=== PATIENT | female | born 1960 | race Caucasian/White ===

== ENCOUNTER → 2017-09-16 | Outpatient (CLI) | payer BC ==
[~2017-09-16] MED LIST: ALBU18002 INH; ATOR-54 PO; FLNIN INH; FURO-85 PO; LIRA18IN IM; METF500T5 PO; SERT50TA PO; TRAZ100T29 PO; [UNRECOGNIZED DRUG - CODE] TOP; [UNRECOGNIZED DRUG - CODE] TOP
[2017-09-16 15:59] LABS: ALBUMIN 3.7 gm/dl (3.4-5.0); ALKALINE PHOSPHATASE 88 U/L (45-117); ALT/SGPT 29 U/L (12-78); AST/SGOT 15 U/L (15-37); TOTAL PROTEIN 7.3 gm/dl (6.4-8.2)
== END | disposition home or self-care (01) ==
LOC: C.LAB1850 14:32
PROVIDERS: ATTEND Physician Assistant Medical
DX: E11.9 Type 2 diabetes mellitus without complications (principal); E78.2 Mixed hyperlipidemia

== ENCOUNTER → 2017-09-16 | Outpatient (CLI) | payer BC ==
--- NOTE | 2017-09-17 14:42 | MAMMOGRAPHY REPORT ---
BILATERAL DIGITAL SCREENING MAMMOGRAM TOMOSYNTHESIS WITH CAD: 09/16/2017 CLINICAL HISTORY: Routine screening. Patient has no complaints. TECHNIQUE: Breast tomosynthesis in addition to standard 2D mammography was performed. Current study was also evaluated with a Computer Aided Detection (CAD) system. COMPARISON: Comparison is made to exam dated: 12/05/2015 mammogram - [facility]. BREAST COMPOSITION: There are scattered areas of fibroglandular density in both breasts. FINDINGS: There is stable nodularity bilaterally. No suspicious mass, architectural distortion or cl uster of microcalcifications is seen. IMPRESSION: ACR BI-RADS CATEGORY 1: NEGATIVE There is no mammographic evidence of malignancy. A 1 year screening mammogram is recommended. The pa tient will receive written notification of the results. Approximately 10% of breast cancers are not detected with mammography. A negative mammographic report should not delay biopsy if a clinically suggestive mass is present. Delmi Klein M.D. ay/:09/16/2017 18:45:16 Building Engineer: Era Whittaker, [facility] letter sent: Normal 1/2 BI-RADS Code: ACR BI-RADS Category 1: Negative
== END | disposition home or self-care (01) ==
LOC: C.MAMM 13:54
PROVIDERS: ATTEND Physician Assistant Medical
DX: Z12.31 Encounter for screening mammogram for malignant neoplasm of breast (principal)

== ENCOUNTER 2024-09-22 07:17 | Observation (INO) ==
--- NOTE | 2024-08-21 11:41 | PAT Medication Instructions ---
Medication Instructions Date of Service August 21, 2024 Home Medications albuterol sulfate 90 mcg/actuation aerosol inhaler (Ventolin HFA) 2 puff inhalation DIRECTED PRN Shortness Of Breath, Wheezing atorvastatin 40 mg tablet (Lipitor) 40 mg PO HS esomeprazole magnesium 20 mg capsule,delayed release (Nexium 24HR) 20 mg PO HS fluticasone propionate 50 mcg/actuation nasal spray,suspension (Flonase Allergy Relief) 2 spray intranasal BID furosemide 20 mg tablet (Lasix) 40 mg PO QAM levocetirizine 5 mg tablet (Xyzal) 5 mg PO BID metformin 500 mg tablet 500 mg PO HS montelukast 10 mg tablet (Singulair) 10 mg PO QAM mupirocin 2 % topical ointment (Centany) 1 applic topical DAILY PRN NASAL DRYNESS sertraline 100 mg tablet (Zoloft) 200 mg PO HS levothyroxine 50 mcg tablet (Euthyrox) 50 mcg PO QAM cholecalciferol (vitamin D3) 125 mcg (5,000 unit) capsule 5,000 unit PO QPM gabapentin 300 mg capsule (Neurontin) 300 mg PO TID ipratropium 0.5 mg-albuterol 3 mg (2.5 mg base)/3 mL nebulization soln 3 ml inhalation QID PRN Shortness Of Breath vitamin B comp and C no.3 15 mg-10 mg-50 mg-5 mg-300 mg capsule (B Complex Plus Vitamin C) 1 cap PO DAILY bupropion HCl 300 mg 24 hr tablet, extended release (Wellbutrin XL) 300 mg PO QAM buspirone 15 mg tablet 15 mg PO TID tirzepatide 15 mg/0.5 mL subcutaneous pen injector (Mounjaro) 15 mg subcut Q7D trazodone 150 mg tablet 150 mg PO HS fluticasone fur. 100 mcg-umeclid 62.5 mcg-vilant 25 mcg inhalat.powder (Trelegy Ellipta) 1 inh inhalation DAILY loratadine 5 mg-pseudoephedrine ER 120 mg tablet,extended release,12hr (Claritin-D 12 Hour) 1 tab PO BID naproxen 500 mg tablet 500 mg PO BID omega 5-wsi-duy-fish oil 1,200 mg (144 mg-216 mg) capsule (Fish Oil) 1 cap PO TID trazodone 50 mg tablet 50 mg PO HS turmeric 400 mg capsule 400 mg PO TID Continue as directed fluticasone fur. 100 mcg-umeclid 62.5 mcg-vilant 25 mcg inhalat.powder (Trelegy Ellipta) 1 inh inhalation DAILY ASK your surgeon for instructions naproxen 500 mg tablet 500 mg PO BID STOP taking 2 weeks before surgery omega 0-thr-qvr-fish oil 1,200 mg (144 mg-216 mg) capsule (Fish Oil) 1 cap PO TID turmeric 400 mg capsule 400 mg PO TID STOP taking 7 days before surgery tirzepatide 15 mg/0.5 mL subcutaneous pen injector (Mounjaro) 15 mg subcut Q7D STOP taking 24 hours before surgery mupirocin 2 % topical ointment (Centany) 1 applic topical DAILY PRN NASAL DRYNESS DO NOT take the morning of surgery furosemide 20 mg tablet (Lasix) 40 mg PO QAM levocetirizine 5 mg tablet (Xyzal) 5 mg PO BID vitamin B comp and C no.3 15 mg-10 mg-50 mg-5 mg-300 mg capsule (B Complex Plus Vitamin C) 1 cap PO DAILY loratadine 5 mg-pseudoephedrine ER 120 mg tablet,extended release,12hr (Claritin-D 12 Hour) 1 tab PO BID Take morning of surgery With a small sip of water, OTHERWISE NOTHING TO EAT OR DRINK AFTER MIDNIGHT: albuterol sulfate 90 mcg/actuation aerosol inhaler (Ventolin HFA) 2 puff inhalation DIRECTED PRN Shortness Of Breath, Wheezing (use if needed; please bring with you to hospital day of surgery if possible) fluticasone propionate 50 mcg/actuation nasal spray,suspension (Flonase Allergy Relief) 2 spray intranasal BID montelukast 10 mg tablet (Singulair) 10 mg PO QAM levothyroxine 50 mcg tablet (Euthyrox) 50 mcg PO QAM gabapentin 300 mg capsule (Neurontin) 300 mg PO TID ipratropium 0.5 mg-albuterol 3 mg (2.5 mg base)/3 mL nebulization soln 3 ml inhalation QID PRN Shortness Of Breath (if needed) bupropion HCl 300 mg 24 hr tablet, extended release (Wellbutrin XL) 300 mg PO QAM buspirone 15 mg tablet 15 mg PO TID Take evening before surgery albuterol sulfate 90 mcg/actuation aerosol inhaler (Ventolin HFA) 2 puff inhalation DIRECTED PRN Shortness Of Breath, Wheezing (if needed) atorvastatin 40 mg tablet (Lipitor) 40 mg PO HS esomeprazole magnesium 20 mg capsule,delayed release (Nexium 24HR) 20 mg PO HS fluticasone propionate 50 mcg/actuation nasal spray,suspension (Flonase Allergy Relief) 2 spray intranasal BID metformin 500 mg tablet 500 mg PO HS levocetirizine 5 mg tablet (Xyzal) 5 mg PO BID cholecalciferol (vitamin D3) 125 mcg (5,000 unit) capsule 5,000 unit PO QPM sertraline 100 mg tablet (Zoloft) 200 mg PO HS gabapentin 300 mg capsule (Neurontin) 300 mg PO TID ipratropium 0.5 mg-albuterol 3 mg (2.5 mg base)/3 mL nebulization soln 3 ml inhalation QID PRN Shortness Of Breath (if needed) buspirone 15 mg tablet 15 mg PO TID trazodone 150 mg tablet 150 mg PO HS loratadine 5 mg-pseudoephedrine ER 120 mg tablet,extended release,12hr (Claritin-D 12 Hour) 1 tab PO BID trazodone 50 mg tablet 50 mg PO HS Other Notes If you have any questions please call us at [phone] or [phone] or [phone] or [phone]
--- NOTE | 2024-09-08 15:03 | Anesthesiology Consultation ---
Date of Service September 08, 2024 Assessment & Plan (1) Encounter for pre-operative examination: Chart Review Chart Review: Acceptable Risk for Surgery (pending review of routine PCP office visit if available ) and Patient seen in Pre Admission Testing - Please obtain PCP office visit (routine visit) scheduled 09/12/24 Dr Willi Kaufman (please send preop testing for continuity of care per patient request) - Check BSG AM DOS - Last dose of Mounjaro can be taken in the AM of 09/15/24 (will be off medication x 7 days) Per PAT appt on 09/08/24, no recent illness/disease exposures, current illness related symptoms, or recent illness/disease positive tests. Will leave to surgeon's discretion if preop Covid testing needed Teaching & Discussion Pre-Anesthesia Teaching/Discussion Notes: Instructed NPO after midnight before surgery,except medications with 15 cc of water. Medication instructions provid ed according to the PAT guidelines. History Surgery Operation Date: 09/22/24 08:05 Proposed Procedures p Right Shoulder Arthroscopy, Rotator Cuff Repair, Subacromial Decompression, Biceps Tenodesis, Possible Allograft Augmentation - Omar Kelley MD Height/Weight Height: 5 ft 2 in Weight: 127.8 kg Allergies Allergy/AdvReac Type Severity Reaction Status Date / Time No Known Allergies Allergy Verified 08/18/24 13:04 Medications Home Medications Medication Instructions Recorded Confirmed Last Taken albuterol sulfate 90 mcg/actuation 2 puff inhalation DIRECTED PRN 02/24/21 08/18/24 03/27/21 aerosol inhaler (Ventolin HFA) Shortness Of Breath, Wheezing atorvastatin 40 mg tablet (Lipitor) 40 mg PO HS 02/24/21 08/18/24 06/12/24 esomeprazole magnesium 20 mg 20 mg PO HS 02/24/21 08/18/24 06/12/24 capsule,delayed release (Nexium 24HR) fluticasone propionate 50 2 spray intranasal BID 02/24/21 08/18/24 03/27/21 mcg/actuation nasal spray,suspension (Flonase Allergy Relief) furosemide 20 mg tablet (Lasix) 40 mg PO QAM 02/24/21 08/18/24 06/12/24 levocetirizine 5 mg tablet (Xyzal) 5 mg PO BID 02/24/21 08/18/24 06/12/24 metformin 500 mg tablet 500 mg PO HS 02/24/21 08/18/24 06/12/24 montelukast 10 mg tablet 10 mg PO QAM 02/24/21 08/18/24 06/12/24 (Singulair) mupirocin 2 % topical ointment 1 applic topical DAILY PRN NASAL 02/24/21 08/18/24 Unknown (Centany) DRYNESS sertraline 100 mg tablet (Zoloft) 200 mg PO HS 02/24/21 08/18/24 06/12/24 levothyroxine 50 mcg tablet 50 mcg PO QAM 03/28/21 08/18/24 06/12/24 (Euthyrox) cholecalciferol (vitamin D3) 125 5,000 unit PO QPM 08/20/23 08/18/24 Unknown mcg (5,000 unit) capsule gabapentin 300 mg capsule 300 mg PO TID 08/20/23 08/18/24 06/12/24 (Neurontin) ipratropium 0.5 mg-albuterol 3 mg 3 ml inhalation QID PRN Shortness 08/20/23 08/18/24 Unknown (2.5 mg base)/3 mL nebulization Of Breath soln vitamin B comp and C no.3 15 mg-10 1 cap PO DAILY 08/20/23 08/18/24 Unknown mg-50 mg-5 mg-300 mg capsule (B Complex Plus Vitamin C) bupropion HCl 300 mg 24 hr tablet, 300 mg PO QAM 06/07/24 08/18/24 06/12/24 extended release (Wellbutrin XL) buspirone 15 mg tablet 15 mg PO TID 06/07/24 08/18/24 06/12/24 tirzepatide 15 mg/0.5 mL 15 mg subcut Q7D 06/07/24 08/18/24 08/18/24 subcutaneous pen injector (Kirstin) trazodone 150 mg tablet 150 mg PO HS 06/07/24 08/18/24 06/12/24 fluticasone fur. 100 mcg-umeclid 1 inh inhalation DAILY 08/18/24 08/18/24 Unknown 62.5 mcg-vilant 25 mcg inhalat.powder (Trelegy Ellipta) loratadine 5 mg-pseudoephedrine ER 1 tab PO BID 08/18/24 08/18/24 Unknown 120 mg tablet,extended release,12hr (Claritin-D 12 Hour) naproxen 500 mg tablet 500 mg PO BID 08/18/24 08/18/24 Unknown omega 7-uxo-ulx-fish oil 1,200 mg 1 cap PO TID 08/18/24 08/18/24 Unknown (144 mg-216 mg) capsule (Fish Oil) trazodone 50 mg tablet 50 mg PO HS 08/18/24 08/18/24 Unknown turmeric 400 mg capsule 400 mg PO TID 08/18/24 08/18/24 Unknown Past Medical History Medical History (Updated 09/08/24 @ 14:59 by Oneyda Montoya PA-C) Anxiety Asthma developed after 2021 covid infection (long Covid) inh and neb prn>2x yearly Biceps rupture, proximal Right - pt unsure of dx but thinks it is bicep - reason for procedure Diabetes NIDDM GERD (gastroesophageal reflux disease) well controlled and stabl History of COVID-19 07/2021, still has brain fog and developed asthma; f/u [facility] post-covid clinic History of pulmonary embolism 2021 secondary to Covid infection- on blood thinners x several months- no issues since Hyperlipidemia Hypothyroidism Kidney stone has had sx in the past, has some currently and no issues OCD (obsessive compulsive disorder) ROSEANNA (obstructive sleep apnea) CPAP Exercise / Class Metabolic Activity III < 4 Walking/Shop/Light housework (one flight of stairs - no chest pain, mild SOB; does swimming daily (difficulty recently due to arm pain) ) Past Surgical History Surgical History History of delivery x3, tubal ligation w/3rd History of ear surgery inner ear surgery, bilateral, 2022 S/P cystoscopy with ureteral stent placement w/laser destruction stone Status post myringotomy with tube placement of both ears Past Anesthesia History No Hx of Anesthesia Complications and No Family Hx of Anesthesia Complications History of PONV No Hx of PONV and No Hx of Motion Sickness Social History Smoking Status: Never smoker Do You Dip or Chew Tobacco: No Hx Alcohol Use: No Hx Substance Use: No substance use type: does not use Review of Systems - Wheezing - chronic with asthma - Mild residual cough from URI the end Jul 2024 Patient denies chest pain, shortness of breath at rest, dyspnea on exertion, palpitations. No hx of seizures, stroke, VA. No hx of blood clots or blood transfusions Physical Exam Vital Signs VITALS BP 120/75 P 67 TEMP 97.4 SP02 94% RESP 16 Constitutional no acute distress ENMT Mouth: no TMJ clicking Thyromental Distance: > or= 3.5 Finger Breadths (3.5) Mallampati Class: I Neck + short neck (mild), + thick neck (mild) and + limited neck extension (mild) Respiratory normal respiratory effort; no respiratory distress Auscultation: lungs clear to auscultation bilaterally; no wheezes Cardiovascular Rate/Rhythm: regular rate and regular rhythm Heart Sounds: no murmur Vessels: no carotid bruit Musculoskeletal Spine: no pain with cervical ROM Extremities: extremities normal to inspection Psychiatric Orientation: alert Lab Results Anesthesia Preop Results Results Anesthesia Widget: WBC 6.92 K/ul (4.8-10.8) 09/08/24 Hgb 14.0 g/dl (12.0-16.0) 09/08/24 Hct 43.0 % (37.0-47.0) 09/08/24 Plt 283 K/uL (130-400) 09/08/24 Na 139 mmol/L (136-145) 09/08/24 K 4.4 mmol/L (3.5-5.1) 09/08/24 Cl 101 mmol/L (98-107) 09/08/24 CO2 31 mmol/L (21-32) 09/08/24 BUN 23 mg/dl (6-23) 09/08/24 Creat 1.12 mg/dl (0.6-1.2) 09/08/24 Glucose Level 127 mg/dl (70-99(Fasting)) H 09/08/24 PT 10.4 Seconds (9.0-12.0) 09/08/24 PTT 25 Seconds (21-31) 09/08/24 INR 1.0 (0.9-1.1) 09/08/24 HA1c 6.2 % (4.5-5.6) H 09/08/24 Testing Electrocardiogram Date: 09/08/24 Findings: + NSR @ (68bpm) Normal EKG per cardio Chest X-Ray Date: 09/08/24 Findings: + NAD
[~2024-09-22 07:17] MED LIST changes: -ALBU18002 INH; -ATOR-54 PO; +BUPIVACAINE 0.5 % 5 MG/1 ML PF 10ML VIAL ONE; -FLNIN INH; -FURO-85 PO; -LIRA18IN IM; -METF500T5 PO; -SERT50TA PO; -TRAZ100T29 PO; -[UNRECOGNIZED DRUG - CODE] TOP; -[UNRECOGNIZED DRUG - CODE] TOP
--- NOTE | 2024-09-22 08:15 | History & Physical Report ---
Date of Service September 22, 2024 Assessment & Plan (1) Tendinopathy of rotator cuff: (2) Biceps rupture, proximal: (3) Traumatic tear of right rotator cuff: Plan The informed consent and plan of the day were all reviewed. Expectations for postop period were reviewed. She wants to proceed. The informed consent was reviewed and confirmed to proceed with RIGHT SHOULDER ARTHROSCOPY, ROTATOR CUFF REPAIR, SUBACROMIAL DECOMPRESSION, BICEPS TENODESIS, POSSIBLE ALLOGRAFT AUGMENTATION History of Present Illness Chief Complaint: Right shoulder injury Primary Care Provider: Willi Kaufman 63-year-old female presents today to proceed with the surgical plan to treat her shoulder pain and rotator cuff dysfunction that developed as a result of an acute injury in April 2024. She reports no changes to her health history. She has been evaluated by anesthesia and wants to proceed today. Allergies Allergy/AdvReac Type Severity Reaction Status Date / Time No Known Allergies Allergy Verified 08/18/24 13:04 Home Medications Medication Instructions Recorded Confirmed Type albuterol sulfate 90 mcg/actuation 2 puff inhalation DIRECTED PRN 02/24/21 08/18/24 History aerosol inhaler (Ventolin HFA) Shortness Of Breath, Wheezing atorvastatin 40 mg tablet (Lipitor) 40 mg PO HS 02/24/21 08/18/24 History esomeprazole magnesium 20 mg 20 mg PO HS 02/24/21 08/18/24 History capsule,delayed release (Nexium 24HR) fluticasone propionate 50 2 spray intranasal BID 02/24/21 08/18/24 History mcg/actuation nasal spray,suspension (Flonase Allergy Relief) furosemide 20 mg tablet (Lasix) 40 mg PO QAM 02/24/21 08/18/24 History levocetirizine 5 mg tablet (Xyzal) 5 mg PO BID 02/24/21 08/18/24 History metformin 500 mg tablet 500 mg PO HS 02/24/21 08/18/24 History montelukast 10 mg tablet 10 mg PO QAM 02/24/21 08/18/24 History (Singulair) mupirocin 2 % topical ointment 1 applic topical DAILY PRN NASAL 02/24/21 08/18/24 History (Centany) DRYNESS sertraline 100 mg tablet (Zoloft) 200 mg PO HS 02/24/21 08/18/24 History levothyroxine 50 mcg tablet 50 mcg PO QAM 03/28/21 08/18/24 History (Euthyrox) cholecalciferol (vitamin D3) 125 5,000 unit PO QPM 08/20/23 08/18/24 History mcg (5,000 unit) capsule gabapentin 300 mg capsule 300 mg PO TID 08/20/23 08/18/24 History (Neurontin) ipratropium 0.5 mg-albuterol 3 mg 3 ml inhalation QID PRN Shortness 08/20/23 08/18/24 History (2.5 mg base)/3 mL nebulization Of Breath soln vitamin B comp and C no.3 15 mg-10 1 cap PO DAILY 08/20/23 08/18/24 History mg-50 mg-5 mg-300 mg capsule (B Complex Plus Vitamin C) bupropion HCl 300 mg 24 hr tablet, 300 mg PO QAM 06/07/24 08/18/24 History extended release (Wellbutrin XL) buspirone 15 mg tablet 15 mg PO TID 06/07/24 08/18/24 History tirzepatide 15 mg/0.5 mL 15 mg subcut Q7D 06/07/24 08/18/24 History subcutaneous pen injector (Mounjaro) trazodone 150 mg tablet 150 mg PO HS 06/07/24 08/18/24 History fluticasone fur. 100 mcg-umeclid 1 inh inhalation DAILY 08/18/24 08/18/24 History 62.5 mcg-vilant 25 mcg inhalat.powder (Trelegy Ellipta) loratadine 5 mg-pseudoephedrine ER 1 tab PO BID 08/18/24 08/18/24 History 120 mg tablet,extended release,12hr (Claritin-D 12 Hour) naproxen 500 mg tablet 500 mg PO BID 08/18/24 08/18/24 History omega 1-wif-vbv-fish oil 1,200 mg 1 cap PO TID 08/18/24 08/18/24 History (144 mg-216 mg) capsule (Fish Oil) trazodone 50 mg tablet 50 mg PO HS 08/18/24 08/18/24 History turmeric 400 mg capsule 400 mg PO TID 08/18/24 08/18/24 History Past Med/Surg History Problem List (Updated 09/22/24 @ 08:15 by Omar Kelley MD) Traumatic tear of right rotator cuff Encounter for pre-operative examination Tendinopathy of rotator cuff Biceps rupture, proximal Vaginal polyp Weakness (Acute) Medical History History of pulmonary embolism 2021 secondary to Covid infection- on blood thinners x several months- no issues since ROSEANNA (obstructive sleep apnea) CPAP Biceps rupture, proximal Right - pt unsure of dx but thinks it is bicep - reason for procedure Hypothyroidism OCD (obsessive compulsive disorder) Anxiety GERD (gastroesophageal reflux disease) well controlled and stabl Hyperlipidemia History of COVID-19 07/2021, still has brain fog and developed asthma; f/u [facility] post-covid clinic Kidney stone has had sx in the past, has some currently and no issues Diabetes NIDDM Asthma developed after 2021 covid infection (long Covid) inh and neb prn>2x yearly Surgical History S/P cystoscopy with ureteral stent placement w/laser destruction stone History of ear surgery inner ear surgery, bilateral, 2022 Status post myringotomy with tube placement of both ears History of delivery x3, tubal ligation w/3rd Social History Smoking Status: Never smoker Second Hand Exposure: No; Do You Dip or Chew Tobacco: No; Tobacco Cessation Education Requested by Patient: No Hx Alcohol Use: No Hx Substance Use: No Preferred Language: Polish Communication Ability: Effective Camp Assistant Required: No Beliefs That Will Affect Care: None Current Living Situation: Spouse Other Information That Helps Us Care for You: No Feels Safe at Home: Yes Safety Concerns: Feels Safe At This Time Assistive Devices: Glasses Review of Systems All systems reviewed & are unremarkable except as noted in HPI & below. Physical Exam Right shoulder: No overlying skin changes. No changes in exam Constitutional WD/WN, vitals as above no acute distress and not intoxicated appearing Respiratory normal respiratory effort; no labored breathing Cardiovascular Extremities: normal capillary refill Results & Data Results & Data Laboratory Results . Diagnostic Findings . PG Care Time/CCT Total # of Minutes Spent Total Time Spent with Patient: Total time spent is greater than 50% in coordination of care (as documented) at patient's floor/unit and/or counseling patient: Coding Level of Care Code None Diagnoses Tendinopathy of right rotator cuff M67.911 Laterality: right Rupture of right proximal biceps tendon, subsequent encounter S46.211D Encounter type: subsequent encounter Laterality: right Traumatic tear of right rotator cuff S46.011A (1) Tendinopathy of rotator cuff Laterality: right Qualified Code(s): M67.911 - Unspecified disorder of synovium and tendon, right shoulder (2) Biceps rupture, proximal Encounter type: subsequent encounter Laterality: right Qualified Code(s): S46.211D - Strain of muscle, fascia and tendon of other parts of biceps, right arm, subsequent encounter
[2024-09-22] MEDS ORDERED: MIDAZOLAM HCL 1 MG/ML 2ML VIAL ONE (08:17)
[2024-09-22] MEDS: LR 15ML/HR IV SCH (08:30)
[2024-09-22] MEDS: ACETAMINOPHEN 500 MG TAB PO SCH (08:31)
[2024-09-22] MEDS: LR 60ML/HR IV SCH (08:31)
[2024-09-22] MEDS ORDERED: DEXAMETHASONE SOD INJ 4 MG/ML VIAL ONE (08:54)
[2024-09-22] MEDS ORDERED: ROCURONIUM BROMIDE 10 MG/ML 5 ML VIAL IV ONE ×2 (08:54→11:36)
[2024-09-22] MEDS ORDERED: LIDOCAINE 2% 2 ML VIAL/AMP(20MG/ML) INFIL ONE (08:54)
[2024-09-22] MEDS ORDERED: PROPOFOL IV EMULSION 10 MG/ML 20 ML VIAL IV ONE (08:54)
[2024-09-22] MEDS ORDERED: ONDANSETRON INJ 2 MG/ML 2 ML VIAL ONE (08:54)
[2024-09-22] MEDS ORDERED: fentaNYL citrate PF 100 MCG/2 ML VIAL ONE (08:54)
[2024-09-22] MEDS ORDERED: PROMETHAZINE HCL 6.25 MG in SODIUM CHLORIDE 0.9% 50 ML IV PRN (09:11)
[2024-09-22] MEDS ORDERED: fentaNYL citrate PF 100 MCG/2 ML VIAL IV PRN (09:11)
[2024-09-22] MEDS ORDERED: ATROPINE SULFATE 0.1 MG/ML 10ML SYR IV PRN (09:11)
[2024-09-22] MEDS ORDERED: ePHEDrine sulfate 50 MG/ML AMP IV PRN (09:11)
[2024-09-22] MEDS ORDERED: ROPIVACAINE 0.5% 5 MG/ML 30 ML VIAL ONE (09:22)
[2024-09-22] MEDS: TRANEXAMIC ACID 1,000 MG **IV Pre-op IV SCH (09:29)
[2024-09-22] MEDS: ceFAZolin 3000MG 3,000 MG/72.5 ML BAG IV SCH (10:32)
[2024-09-22] MEDS ORDERED: ePHEDrine sulfate 50 MG/ML AMP ONE (10:59)
[2024-09-22] MEDS ORDERED: PHENYLEPHRINE 100MCG/ML 5ML SYR ONE (11:36)
[2024-09-22] MEDS ORDERED: SUGAMMADEX SODIUM 200 MG/2 ML VIAL IV ONE (13:14)
--- NOTE | 2024-09-22 14:02 | Post Operative Brief Note ---
PG Immediate Post Op with CF Date of Surgery September 22, 2024 Pre & Post Diagnosis Operation Date: 09/22/24 09:50 Pre-Op Diagnosis: (1) Tendinopathy of rotator cuff: (2) Biceps rupture, proximal: (3) Traumatic tear of right rotator cuff: Post-Op Diagnosis: (1) Tendinopathy of rotator cuff: (2) Biceps rupture, proximal: (3) Traumatic tear of right rotator cuff: I identified the patient and participated in the time-out.: Yes Procedure Operation Date: 09/22/24 09:50 Actual Procedures p Right Shoulder Arthroscopy, Rotator Cuff Repair, Subacromial Decompression, Biceps Tenodesis, Allograft Augmentation(Right) - Omar Kelley MD Surgeon Omar Kelley MD Senior Investment Analyst EULALIO Christianson Estimated Blood Loss 25 Findings Consistent with Post-Op Diagnosis
--- NOTE | 2024-09-22 16:50 | History & Physical Report ---
Date of Service September 22, 2024 Assessment & Plan (1) Hypoxia: (2) ROSEANNA (obstructive sleep apnea): (3) History of COVID-19: (4) Diabetes: Plan #hypoxia -strongly suspect post op sedation, possibly some effects from nerve block (ie lack of deep breathing +/- atelectasis)- but superimposed on ROSEANNA/probable OHS (related to morbid obesity/BMI 51.6) -CPAP -supportive care, supplemental O2, time -serial exams but doubt other pathology at play -incentive spirometry -home once improved; w/u further if doesn't improve or anything changes/worsens #DM -home meds -more intensive management/etc if hospital stay prolonged #DVT proph - SCDs for now; add pharmacologic if stay is prolonged comes from home, lives with , notes they're both on disability - anticipate being able to go home at discharge History of Present Illness Chief Complaint: hypoxia Primary Care Provider: Willi peace 63F post op shoulder surgery. we were asked to see due to persistent hypoxia. no sx. no sob. no f/c/s. no cp no cough. she relates it to her long covid and is not surprised. mostly wants to make sure we have CPAP or that she can use hers from home. Allergies Allergy/AdvReac Type Severity Reaction Status Date / Time No Known Allergies Allergy Verified 09/22/24 08:18 Home Medications Medication Instructions Recorded Confirmed Type albuterol sulfate 90 mcg/actuation 2 puff inhalation DIRECTED PRN 02/24/21 09/22/24 History aerosol inhaler (Ventolin HFA) Shortness Of Breath, Wheezing atorvastatin 40 mg tablet (Lipitor) 40 mg PO HS 02/24/21 09/22/24 History esomeprazole magnesium 20 mg 20 mg PO HS 02/24/21 09/22/24 History capsule,delayed release (Nexium 24HR) fluticasone propionate 50 2 spray intranasal BID 02/24/21 09/22/24 History mcg/actuation nasal spray,suspension (Flonase Allergy Relief) furosemide 20 mg tablet (Lasix) 40 mg PO QAM 02/24/21 09/22/24 History levocetirizine 5 mg tablet (Xyzal) 5 mg PO BID 02/24/21 09/22/24 History montelukast 10 mg tablet 10 mg PO QAM 02/24/21 09/22/24 History (Singulair) mupirocin 2 % topical ointment 1 applic topical DAILY PRN NASAL 02/24/21 09/22/24 History (Centany) DRYNESS sertraline 100 mg tablet (Zoloft) 200 mg PO HS 02/24/21 09/22/24 History levothyroxine 50 mcg tablet 50 mcg PO QAM 03/28/21 09/22/24 History (Euthyrox) cholecalciferol (vitamin D3) 125 5,000 unit PO QPM 08/20/23 09/22/24 History mcg (5,000 unit) capsule gabapentin 300 mg capsule 300 mg PO TID 08/20/23 09/22/24 History (Neurontin) ipratropium 0.5 mg-albuterol 3 mg 3 ml inhalation QID PRN Shortness 08/20/23 09/22/24 History (2.5 mg base)/3 mL nebulization Of Breath soln vitamin B comp and C no.3 15 mg-10 1 cap PO DAILY 08/20/23 09/22/24 History mg-50 mg-5 mg-300 mg capsule (B Complex Plus Vitamin C) bupropion HCl 300 mg 24 hr tablet, 300 mg PO QAM 06/07/24 09/22/24 History extended release (Wellbutrin XL) buspirone 15 mg tablet 15 mg PO TID 06/07/24 09/22/24 History tirzepatide 15 mg/0.5 mL 15 mg subcut Q7D 06/07/24 08/18/24 History subcutaneous pen injector (Mounjaro) trazodone 150 mg tablet 150 mg PO HS 06/07/24 09/22/24 History fluticasone fur. 100 mcg-umeclid 1 inh inhalation DAILY 08/18/24 09/22/24 History 62.5 mcg-vilant 25 mcg inhalat.powder (Trelegy Ellipta) loratadine 5 mg-pseudoephedrine ER 1 tab PO BID 08/18/24 09/22/24 History 120 mg tablet,extended release,12hr (Claritin-D 12 Hour) naproxen 500 mg tablet 500 mg PO BID 08/18/24 09/22/24 History omega 7-ulv-rde-fish oil 1,200 mg 1 cap PO TID 08/18/24 09/22/24 History (144 mg-216 mg) capsule (Fish Oil) trazodone 50 mg tablet 50 mg PO HS 08/18/24 09/22/24 History turmeric 400 mg capsule 400 mg PO TID 08/18/24 09/22/24 History empagliflozin 5 mg-metformin 500 1 tab PO BID 09/22/24 09/22/24 History mg tablet (Synjardy) ondansetron HCl 4 mg tablet 4 mg PO Q8H PRN nausea and 09/22/24 Rx vomiting #10 tabs oxycodone 5 mg tablet 5 mg PO Q4H PRN pain #18 tabs 09/22/24 Rx Past Med/Surg History Problem List (Updated 09/22/24 @ 16:47 by Charli Dwyer DO) Hypoxia S/P rotator cuff repair Traumatic tear of right rotator cuff Encounter for pre-operative examination Tendinopathy of rotator cuff Biceps rupture, proximal Vaginal polyp Weakness (Acute) Medical History History of pulmonary embolism 2021 secondary to Covid infection- on blood thinners x several months- no issues since ROSEANNA (obstructive sleep apnea) CPAP Biceps rupture, proximal Right - pt unsure of dx but thinks it is bicep - reason for procedure Hypothyroidism OCD (obsessive compulsive disorder) Anxiety GERD (gastroesophageal reflux disease) well controlled and stabl Hyperlipidemia History of COVID-19 07/2021, still has brain fog and developed asthma; f/u [facility] post-covid clinic Kidney stone has had sx in the past, has some currently and no issues Diabetes NIDDM Asthma developed after 2021 covid infection (long Covid) inh and neb prn>2x yearly Surgical History S/P cystoscopy with ureteral stent placement w/laser destruction stone History of ear surgery inner ear surgery, bilateral, 2022 Status post myringotomy with tube placement of both ears History of delivery x3, tubal ligation w/3rd Social History Smoking Status: Never smoker Second Hand Exposure: No; Do You Dip or Chew Tobacco: No; Tobacco Cessation Education Requested by Patient: No Hx Alcohol Use: No Hx Substance Use: No Preferred Language: Mexican Communication Ability: Effective Exercise Equipment Specialist Required: No Beliefs That Will Affect Care: None Current Living Situation: Spouse Other Information That Helps Us Care for You: No Feels Safe at Home: Yes Safety Concerns: Feels Safe At This Time Assistive Devices: Glasses Review of Systems Review of Systems: All systems reviewed & are unremarkable except as noted in HPI & below Physical Exam Physical Exam: gen aaox3 pleasant nad heent nc at mmm cardio distant but reg no r/m/g. breathing unlabored no accessory muscles lungs quiet but clear - diminished air entry but no r/r/w good effort skin no rashes no pallor or icterus neuro no focal deficits Results & Data Results & Data Vital Signs (Past 12 Hours) Vital Signs Temp Pulse Pulse Resp BP Pulse Ox O2 Del Method 09/22/24 16:25 97.7 F 65 21 99/62 L 93 Nasal Cannula 09/22/24 16:15 67 22 111/83 95 Nasal Cannula 09/22/24 16:05 64 20 107/61 95 Nasal Cannula 09/22/24 15:55 67 14 120/73 94 Nasal Cannula 09/22/24 15:45 71 21 126/65 93 Nasal Cannula 09/22/24 15:35 75 22 95/53 L 92 Nasal Cannula 09/22/24 15:25 64 21 103/54 L 92 Nasal Cannula 09/22/24 15:15 66 22 104/57 L 93 Nasal Cannula 09/22/24 15:05 63 20 105/44 L 96 Nasal Cannula 09/22/24 14:55 66 21 108/46 L 96 Nasal Cannula 09/22/24 14:45 97.2 F L 64 22 99/48 L 96 Nasal Cannula 09/22/24 14:35 61 19 105/53 L 100 CPAP 09/22/24 14:25 65 16 103/54 L 98 CPAP 09/22/24 14:15 64 18 118/65 98 CPAP 09/22/24 14:05 96.8 F L 63 19 116/58 L 96 CPAP 09/22/24 08:46 Room Air 09/22/24 08:05 98.2 F 63 22 135/79 94 Room Air O2 Flow Rate FiO2 09/22/24 16:25 3 09/22/24 16:15 3 09/22/24 16:05 3 09/22/24 15:55 3 09/22/24 15:45 3 09/22/24 15:35 3 09/22/24 15:25 2 09/22/24 15:15 2 09/22/24 15:05 2 09/22/24 14:55 2 09/22/24 14:45 4 09/22/24 14:35 40 09/22/24 14:25 40 09/22/24 14:15 40 09/22/24 14:05 40 09/22/24 08:46 09/22/24 08:05 Code Status & VTE Plan VTE Prophylaxis Plan VTE Prophylaxis will be ordered: Yes PG Care Time/CCT Total # of Minutes Spent Total Time Spent with Patient: Total time spent is greater than 50% in coordination of care (as documented) at patient's floor/unit and/or counseling patient: Coding Level of Care Code 71789 INT INP/OBS CARE 3/75MIN Diagnoses Hypoxia R09.02 ROSEANNA (obstructive sleep apnea) G47.33 History of COVID-19 Z86.16 Diabetes E11.9
--- NOTE | 2024-09-22 17:28 | Anesthesiology Progress Note ---
Date of Service September 22, 2024 Anesthesia Post Procedure Vital Signs Vital Signs: Temp Pulse Pulse Resp BP Pulse Ox O2 Del Method 09/22/24 17:15 74 17 116/65 92 Nasal Cannula 09/22/24 17:00 67 20 112/52 L 93 Nasal Cannula 09/22/24 16:45 65 18 97/62 L 94 Nasal Cannula 09/22/24 16:30 65 18 100/62 94 Nasal Cannula 09/22/24 16:25 36.5 C 65 21 99/62 L 93 Nasal Cannula 09/22/24 16:15 67 22 111/83 95 Nasal Cannula 09/22/24 16:05 64 20 107/61 95 Nasal Cannula 09/22/24 15:55 67 14 120/73 94 Nasal Cannula 09/22/24 15:45 71 21 126/65 93 Nasal Cannula 09/22/24 15:35 75 22 95/53 L 92 Nasal Cannula 09/22/24 15:25 64 21 103/54 L 92 Nasal Cannula 09/22/24 15:15 66 22 104/57 L 93 Nasal Cannula 09/22/24 15:05 63 20 105/44 L 96 Nasal Cannula 09/22/24 14:55 66 21 108/46 L 96 Nasal Cannula 09/22/24 14:45 36.2 C L 64 22 99/48 L 96 Nasal Cannula 09/22/24 14:35 61 19 105/53 L 100 CPAP 09/22/24 14:25 65 16 103/54 L 98 CPAP 09/22/24 14:15 64 18 118/65 98 CPAP 09/22/24 14:05 36 C L 63 19 116/58 L 96 CPAP 09/22/24 08:46 Room Air 09/22/24 08:05 36.8 C 63 22 135/79 94 Room Air O2 Flow Rate FiO2 09/22/24 17:15 3 09/22/24 17:00 3 09/22/24 16:45 3 09/22/24 16:30 3 09/22/24 16:25 3 09/22/24 16:15 3 09/22/24 16:05 3 09/22/24 15:55 3 09/22/24 15:45 3 09/22/24 15:35 3 09/22/24 15:25 2 09/22/24 15:15 2 09/22/24 15:05 2 09/22/24 14:55 2 09/22/24 14:45 4 09/22/24 14:35 40 09/22/24 14:25 40 09/22/24 14:15 40 09/22/24 14:05 40 09/22/24 08:46 09/22/24 08:05 Transfer of Care Handoff Completed per policy Notes Mental Status: alert / awake / arousable Patient Amnestic to Procedure: Yes Nausea / Vomiting: adequately controlled Pain: adequately controlled Airway Patency, RR, SpO2: stable & adequate BP & HR: stable & adequate Hydration State: stable & adequate Anesthetic Complications: no major complications apparent
[2024-09-22] MEDS ORDERED: ALUMINUM/MAGNESIUM SUSP 30 ML UDC PO PRN (17:42)
[2024-09-22] MEDS ORDERED: MAGNESIUM HYDROXIDE SUSP 30 ML UDC PO PRN (17:42)
[2024-09-22] MEDS ORDERED: POLYETHYLENE (MIRALAX) 17 GM PACK PO PRN (17:42)
[2024-09-22] MEDS ORDERED: MUPIROCIN 2% OINT 22 GM TUBE TOP PRN (17:42)
[2024-09-22] MEDS ORDERED: ALBUTEROL HFA 8 GM INHALER INH PRN (17:42)
[2024-09-22] MEDS ORDERED: ONDANSETRON INJ 2 MG/ML 2 ML VIAL IV PRN (17:42)
[2024-09-22] MEDS ORDERED: ALBUT/IPRATROP 3MG/0.5MG NEB 3 ML VIAL INH PRN (17:42)
--- NOTE | 2024-09-22 19:13 | Operative Report ---
PG Post Operative Report Pre & Post Diagnosis Operation Date: 09/22/24 09:50 Pre-Op Diagnosis: (1) Tendinopathy of rotator cuff: (2) Biceps partial rupture, proximal: (3) Traumatic tear of right rotator cuff: (4) partial tear of the subscapularis Post-Op Diagnosis: (1) Tendinopathy of rotator cuff: (2) Biceps partial rupture, proximal: (3) Traumatic tear of right supraspinatus and infraspinatus rotator cuff: (4) partial tear of the subscapularis I identified the patient and participated in the time-out.: Yes Procedure Operation Date: 09/22/24 09:50 Actual Procedures p Right Shoulder Arthroscopy, subscapularis repair with arthroscopic biceps tenodesis, allograft augmented supraspinatus and infraspinatus rotator Cuff Repair, Subacromial Decompression (Right) - Omar Kelley MD Surgeon Omar Kelley MD Mortgage Clerk Jefe Christianson PA-C Estimated Blood Loss 25 Findings Consistent with Post-Op Diagnosis EUA demonstrated full passive range of motion without crepitus. Arthroscopy revealed massive rotator cuff tear. There was a partial tear of the subscapularis with biceps partial tearing and impingement onto the subscapularis. There is a full-thickness tear with retraction of the i nfraspinatus and supraspinatus there was an L-shaped pattern. Extensive tendinopathy with both acute and chronic tearing findings. Preserved cartilage. The subscapularis partial tear was fixed using a speed fix construct that incorporated a biceps loop and tack tenodesis into a 4.75 bio composite swivel lock. The superior rotator cuff tissue was repaired after debridement to approximately 50% the width of the rotator cuff footprint using a 5 anchor, double row construct, incorporating Arthrex Arthroflex dermal allograft for the soft tissue deficit and reinforcement of the tendinopathy. The posterolateral corner of the retracted cuff was fixed using an independent Arthrex 2.6 mm knotless fiber tack that reached about 50% of the footprint of the greater tuberosity. The medial row was Arthrex 2.6 mm knotless RC fiber tacks that were passed through the residual cuff tissue, with the medial row knotless mechanism used to pulling the Arthroflex dermal allograft (402: 1 mm x 20 x 25 mm), with a dermal allograft lateral corners fixed using bio composite 3.5 mm push locks, with fiber tape from the medial row brought to a lateral crossing suture bridge construct into a two 5.5 mm bio composite swivel locks. Specimens None Anesthesia Type General Regional Complications none Disposition Accompanied Patient To Recovery: No Disposition: Recovery Room Indications 63-year-old [female] presented with shoulder pain and rotator cuff dysfunction following an acute injury in April 2024. Physical exam and advanced imaging supported the diagnosis of acute on chronic massive rotator cuff tear, and arthroscopic intervention to restore shoulder function was offered. We discussed the risks and benefits, as outlined in the preoperative note. Informed consent was obtained in the clinic. Description of Procedure On the day of surgery, the patient was greeted in the preoperative holding area. The informed consent was reviewed and confirmed by myself and the patient. The patient identified the surgical site, and it was marked by me. The patient was then turned over to anesthesia. Anesthesia performed a liposomal ropivacaine regional anesthetic block with excellent effect. Patient was then taken to the operating room and placed upon the OR table. Anesthesia was induced. The airway was secured. The patient was positioned in the beachchair with all bony prominences well- padded. The operative extremity was then prepped and draped in usual sterile fashion for beachchair arthroscopy with Arthrex Trimano arm positioner. Surgical timeout was called by the circulating nurse and verified all present. Antibiotics had been infused, and equipment was available and functional. We initiated the procedure by creating a standard posterior viewing portal for beachchair arthroscopy. Cursory diagnostic arthroscopy was carried out and an anterior portal was established using a spinal needle for localization. A motorized shaver was then introduced to address synovitis and improve visualization. Thorough diagnostic arthroscopy was carried out. The superior labrum had degenerative fraying. The inferior, posterior and anterior labrum also had abundant synovitis which was extensively debrided. The articular cartilage was intact with a grade 1 diffuse softening throughout. There were impingement lesions at the entrance to the biceps groove bicep tendon appeared significantly frayed. The superior border of the subscapularis was frayed. The intra-articular exam demonstrated an obvious full-thickness tear of the superior cuff tissue with exposure of the rotator cuff footprint. Given the full-thickness superior rotator cuff tear, I established a lateral portal using a spinal needle for localization. A Bessy cannula was placed here for additional access while repairing the subscapularis and perform the biceps tenodesis. Given the condition of the biceps tendon in the superior labrum, biceps tenodesis was planned to be performed arthroscopically. This was performed using the loop and tack method. A link stitch was passed thru the bicep tendon and brought back down to capture with loop. A tissue penetrator device was then used to pass the suture tail back through the substance of the tendon to form secure grasping suture. An Arthrex silicone passport cannula was placed into the anterior portal. The subscapularis tendon was mobilized by removing peritendinous adhesions using the motorized shaver and electrocautery wand. The middle glenohumeral ligament was released partially to allow good excursion of the tendon. The anterior aspect of the subscapularis recess was debrided of soft tissue to allow suture passage of the scorpion. The subscapularis tear involve the superior border and was amenable to a simple speed fix or inverted horizontal mattress stitch. The superior aspect of the lesser tuberosity footprint was prepared using a curette and motorized shaver to create a bleeding bony bed. The scorpion was loaded with fiber tape suture which was then passed through the subscapularis tendon in an inverted horizontal mattress fashion. The tails were pulled out the anterior superior access portal. The tails of the speed fix were then captured on a 4.75 bio composite swivel lock anchor and the loop intact biceps tenodesis suture was included with this construct. The 4.75 punch was then used to create a pilot plant operator hole and then the swivel lock was deployed to complete the speed fix with biceps tenodesis. We then exited the intra-articular space and entered the subacromial space using a trocar. Motorized shaver was introduced and that subacromial bursectomy was carried out to improve visualization. A spur was appreciated on the anterior lateral edge of the acromion. A formal subacromial decompression with acromioplasty was performed using motorized helen to reshape the underside of the acromion to a flat stable margin all the way to the AC joint. Thorough irrigation was then performed. Once we have adequate visualization of the rotator cuff we evaluated the bursal aspect. We then changed to the lateral viewing portal. Switching stick was used to assist with this. Spinal needle was then used to create an accessory lateral viewing portal. We then cannulated the second lateral portal with an Arthrex Bessy cannula. Debridement of the rotator cuff insertion was carried out. The posterior interval slide release was performed to gain excursion of the tendon. There was significant occasions of the retracted tendon on the capsular bursal side there is require debridement. The skeletonized the acromion acromial spine and released all the posterior and anterior gutters. We debrided back generative rotator cuff tissue back to stable tissue margins. The greater tuberosity footprint was then debrided of soft tissue. A arthroscopic helen, motorized shaver, and curette was used to expose bleeding bone. We then percutaneously inserted self punching 2.6 mm FiberTack RC anchor with knotless mechanism and suture tape into the ivanna-medial row position on the articular cartilage margin which was visible. Spinal needle was used to locate and then deploy a percutaneously inserted second and third 2.6 mm fiber tack RC anchor to the middle and posterior position. All suture tails were brought back out of the percutaneous insertion points for suture management. An Arthrex scorpion was then used to pass a fiber link suture through the posterior and anterior cuff tissue. The fiber link was used to pass the swedged fiber tapes from the anchor as well as knotless mechanism stitches. The posterior anchor was passed through the residual teres and posterior corner of the infraspinatus. The anterior and middle positions were passed through a delaminated portion on the articular side and including the bursal portion. The tissue excursion would not allow full footprint coverage. For that reason an independent 2's 0.6 mm knotless fiber tack was used at the posterior aspect of the middle of the tuberosity footprint. This was passed in an inverted mattress fashion to bring that posterior cord of the L pattern back to the residual posterior cuff tissue. This covered about 50% of the distance from the medial to the lateral aspect of the greater tuberosity footprint. The chronic tendinopathy and tissue loss from the acute tear left uncovered portion of tuberosity. For that reason I opted to do a tuboplasty type augmentation to finish the repair. An Arthroflex allograft was opened in the back table. It was thoroughly rinsed. 0 FiberLink sutures were posted on the lateral corners. The graft and brought to the lateral Bessy portal. The knotless mechanisms were then passed to the medial edge. The medial row anchors were then used to shuttle via the knotless mechanism the graft into and over the footprint. This deployed well, though the middle position became tangled. I used an open suture cutter to relieve this and left the bridging from the anterior to posterior positions. The lateral corners were then tacked down over the lateral aspect of the humerus using Arthrex 3.5 mm bio composite swivel locks. The graft was fixed well and suspended over the repair site, covering the exposed footprint and reinforcing the medial repair. The FiberTag tails were then brought back out the lateral portal in standard fashion to complete the double row repair over top the augmentation. We used a Arthrex Bessy cannula to provisionally reduce the tissue using the suture tails. We chose our spot for the lateral row anchor based on a quality reduction of the tissue. The punch was used to create the hole for the anchor. A 5.5 mm bio composite swivel lock anchor was then loaded with these tails and deployed into its socket under arthroscopic visualization. This was repeated for the posterior lateral anchor position to complete the repair. The tear repair was then evaluated. Had good reduction of tissue and complete coverage of the footprint. There were no dogear formations. The subacromial space was then thoroughly irrigated and evacuated of arthroscopic fluid. Intra-articular exam demonstrated near anatomic reduction of the tissue. Joint was deflated of arthroscopic fluid as well. All instruments were then removed including the cannulas. Wounds were approximated using 3-0 Monocryl suture in a buried knot fashion, backed up by Steri-Strips. The wounds are dressed sterile Xeroform, sterile gauze and ABD. Ioban tape was then used to secure the final dressing. The arm was placed in a standard postoperative sling. Patient tolerated the procedure well, was extubated in the operating room without complication, and transported the PACU in stable condition. Disposition: Patient will undergo routine postoperative pain management at home and will initiate physical therapy before the 2-week follow-up appointment. The patient will follow a massive rotator cuff repair physical therapy protocol. They be nonweightbearing for 6 weeks. They remain in the sling for 6 weeks. Follow-up will occur in 10 to 14 days in the orthopedic clinic. Physician field technical assistant attestation: Jefe Christianson PA-C was present and scrubbed for the duration of the case. Skilled was essential to prepping/draping, patient positioning, retraction, suture management, anchor placement, and assistance with wound closure. I attest to the content of the Intraoperative Record and any orders documented therein. Any exceptions are noted below.
[2024-09-22] MEDS: ATORVASTATIN 40 MG TAB PO SCH (20:47)
[2024-09-22] MEDS: CETIRIZINE HCL 10 MG TABLET PO SCH (20:48)
[2024-09-22] MEDS: CHOLECALCIFEROL 125 MCG (5,000 UNITS) TAB PO SCH (20:48)
[2024-09-22] MEDS: busPIRone 15 MG TAB PO SCH (20:48)
[2024-09-22] MEDS: GABAPENTIN 300 MG CAP PO SCH (20:49)
[2024-09-22] MEDS: PANTOprazole 40 MG TAB PO SCH (20:50)
[2024-09-22] MEDS: SERTRALINE HCL 100 MG TABLET PO SCH (20:51)
[2024-09-22] MEDS: OMEGA-3 (PURIFIED FISH OIL) 1 GM CAP PO SCH (20:51)
[2024-09-22] MEDS: FLUTICASONE PROPIONATE NA SPR 16 GM BTL NAE SCH (20:52)
[2024-09-22] MEDS: traZODone HCL 50 MG TAB PO SCH ×2 (20:53→21:04)
[2024-09-22] MEDS ORDERED: NON-FORMULARY MEDICATION (Turmeric 400 mg Capsule) PO SCH (21:00)
[2024-09-22] MEDS: oxyCODONE HCL IR 5 MG TAB (IMMEDIATE RELEASE) PO PRN (21:12)
[2024-09-23] MEDS: KETOROLAC TROMETHAMINE 15 MG/ML VIAL IV PRN (03:13)
[2024-09-23] MEDS: BUPIVACAINE LIPOSOME 1.3% 133 MG/10 ML VIAL ONE (05:13)
[2024-09-23] MEDS: ACETAMINOPHEN 325 MG TAB PO PRN (05:57)
[2024-09-23] MEDS: LEVOTHYROXINE SODIUM 50 MCG TABLET PO SCH (05:57)
[2024-09-23] MEDS: buPROPion XL 300 MG TABCR PO SCH (07:34)
[2024-09-23] MEDS: FLUTICASONE FUROATE 100MCG 14 PUFFS/INHALER INH SCH (07:36)
[2024-09-23] MEDS: FUROSEMIDE 40 MG TAB PO SCH (07:37)
[2024-09-23] MEDS: UMECLIDINIUM/VILANTEROL 62.5/25MCG 7 PUFFS/INHALER INH SCH (07:37)
[2024-09-23] MEDS: MONTELUKAST SODIUM 10 MG TABLET PO SCH (07:37)
--- NOTE | 2024-09-23 08:51 | Orthopedic Progress Note ---
Date of Service September 23, 2024 Assessment & Plan (1) S/P rotator cuff repair: (2) Traumatic tear of right rotator cuff: Plan 63-year-old female POD# 1 s/p right shoulder arthroscopy, subscapularis repair with arthroscopic biceps tenodesis, allograft augmented supraspinatus and infraspinatus rotator Cuff Repair, Subacromial Decompression 09/22/[address] Kelley. Pain is mildly improving. Now medically stable; no longer with hypoxia. Patient is neurologically intact. Plan: 1. DVT prophylaxis w/ early ambulation. Encourage elbow, wrist, digit AROM. 2. PT/OT as tolerated. Sling on at all times, including while sleeping, but may come off to shower and dress. 3. Pain control improving; increased Toradol to 30 mg IV. Should give this at least once prior to discharge, then patient may transition to oral NSAIDs. 4. Disposition - plan to D/C home w/ self-care later today once cleared by hospitalist service. 5. F/u as scheduled w/ first post-op visit. Subjective Patient is POD# 1 s/p right shoulder arthroscopy, subscapularis repair with arthroscopic biceps tenodesis, allograft augmented supraspinatus and infraspinatus rotator Cuff Repair, and Subacromial Decompression by Dr. Kelley on 09/14/2024. Patient says she had some significant pain throughout the night that kept her awake. She did just have "something in my IV" that is helping some with the pain now. Denies CP, SOB, N/V, RUE paresthesia. Review of Systems All systems reviewed & are unremarkable except as noted in HPI & below. Physical Exam GENERAL: AA&Ox3, NAD. Pleasant, affect is calm. Shoulder immobilizer donned to RUE, well-fitting. Complains of pain, but appears comfortable. RESPIRATORY: Normal respiratory effort with no signs of distress. CHEST/AXILLA: Chest movement symmetrical. No deformities noted. CARDIOVASCULAR: No edema noted. SKIN: [place], warm and dry. MS/EXTREMITY: Shoulder dressing c/d/i. + wrist/elbow AROM. Median/Ulnar/Radial nerve distributions intact to sensory/motor. Radial pulse intact, 2+. Results & Data Results & Data Laboratory Results . Diagnostic Findings . PG Care Time/CCT Total # of Minutes Spent Total Time Spent with Patient: Total time spent is greater than 50% in coordination of care (as documented) at patient's floor/unit and/or counseling patient: Coding [place] [address] SUB INP/OBS CARE 2/35MIN Patient Type Established History Problem Focused Exam Expanded Problem Focused Medical Decision Making Moderate Complexity Diagnoses S/P rotator cuff repair Z98.890 Traumatic tear of right rotator cuff S46.011A
[2024-09-23] MEDS ORDERED: NON-FORMULARY MEDICATION (Fluticasone-Umeclidin-Vilanter [Trelegy Ellipta] 100-62.5-25 mcg INH SCH (09:00)
[2024-09-23] MEDS ORDERED: NON-FORMULARY MEDICATION (Vitamin B Comp And C No.3 [B Complex Plus Vitamin C] 15-10-50-5- PO SCH (09:00)
[2024-09-23 11:11] VITALS: BP 106/56; RESP 19; TEMP 97.9; O2SAT 90
[2024-09-23] MEDS: KETOROLAC 30 MG/ML VIAL IV PRN (15:00)
[2024-09-23 16:52] VITALS: PULSE 76
--- NOTE | 2024-09-27 11:49 | Discharge Summary ---
Date of Service September 27, 2024 Admission HPI (Per Admitting) 63-year-old female presents today to proceed with the surgical plan to treat her shoulder pain and rotator cuff dysfunction that developed as a result of an acute injury in April 2024. She reports no changes to her health history. She has been evaluated by anesthesia and wants to proceed today. Admission Exam (Per Admitting) Right shoulder: No overlying skin changes. No changes in exam Principal Diagnosis Same as "Discharge Diagnosis" noted below under Discharge Instructions. Discharge Exam GENERAL: AA&Ox3, NAD. Pleasant, affect is calm. Shoulder immobilizer donned to RUE, well-fitting. Complains of pain, but appears comfortable. RESPIRATORY: Normal respiratory effort with no signs of distress. CHEST/AXILLA: Chest movement symmetrical. No deformities noted. CARDIOVASCULAR: No edema noted. SKIN: [address], warm and dry. MS/EXTREMITY: Shoulder dressing c/d/i. + wrist/elbow AROM. Median/Ulnar/Radial nerve distributions intact to sensory/motor. Radial pulse intact, 2+. Discharge Data Procedures Performed Operation Date: 09/22/24 09:50 Actual Procedures p Right Shoulder Arthroscopy, Rotator Cuff Repair, Subacromial Decompression, Biceps Tenodesis, Allograft Augmentation(Right) - Omar Kelley MD Ordered Studies 09/22/24 05:00 US - OR guided needle placemen Routine Hospital Course (1) S/P rotator cuff repair: This is a 63 year old patient admitted on 09/22/24 and underwent shoulder arthroscopy/rotator cuff repair. She tolerated the procedure well and there were no complications. Transferred to the PACU post op and experienced post op hypoxia. She was admitted to the orthopedic floor for further care and the Hospitalist service was consulted. She was given supplemental oxygen and cpap machine. She did not require any additional work up for this. Vital signs were monitored during her hospital stay and remained stable. Did not require any blood transfusions. There were no complications during her hospital stay. By post op day #1 the patient was tolerating a diabetic diet, pain was reasonably controlled with oral pain medicine. On post op day #1 the patient was discharged home. She was given printed discharge instructions including prescriptions for oxycodone and zofran. Continue physical therapy. Follow up approximately 2 weeks post op or sooner if there are problems or concerns. PG Care Time/CCT Total # of Minutes Spent Total Time Spent with Patient: : Discharge Plan Discharge Items Patient Disposition: Home - Self-Care Reason For Visit: Traumatic Complete Tear of Right Rotator Cuff, Sub Discharge Diagnosis: right rotator cuff repair Activity: Per Instructions section Non-emergency contact: Surgeon Call non-emergency contact if: your pain is worsening, your temperature is above 101, your wound has increased redness and your wound has increased drainage Follow-up/Referrals: Omar Kelley MD [Surgeon] - (as scheduled) Lacey Quiles PA-C [Physician Crepe Laminator Operator] - (as scheduled on 10/07/24 @ 15:00) Willi Kaufman [Primary Care Provider] - Diet: Regular Addtl Attending Provider Instructions: Omar Kelley M.D. [facility] Orthopedic Surgery [address] [place] [id number] SHOULDER PROCEDURES WOUND CARE: Leave your dressing in place and keep the area clean and dry. After 3 days, you may remove your dressing. DO NOT REMOVE ANY SUTURES. DO NOT REMOVE THE PAPER TAPE STRIPS THAT ARE CROSSING YOUR INCISION THEY WILL FALL OFF GRADUALLY IN 2-3 WEEKS. After removing your dressing, you may begin to shower with the paper tape strips in place. Do not soak the incision. Allow gentle soap and water to run over the wound(s) and pat dry. Please cover the incision(s) with a clean, dry dressing, as needed. Do not use any ointments or topical medications unless directed by your surgeon. Do not submerse the incisions in water no pools, oceans, lakes, jacuzzis, bathtubs, etc for at least 3 weeks. ACTIVITY: Remain in the sling provided. Do not lift anything heavier than a cup of coffee with that hand. You may type or use a keyboard as tolerated. You may come out of the sling for careful hygiene and Range of Motion exercises, only. Please perform ROM (range of motion) exercises at least three times daily: 1. Wrist flexion and extension 2. Finger pump 3. Elbow flexion/extension and forearm rotation 4. Supported Codmans Exercises come out of sling, dangle your affected arm. Use your nonoperative (good) arm to support your operative (getting better!) arm at the elbow. Gently rotate/swing your operative arm in a pendulum motion for 1- 2 minutes. Rest. Repeat three times. Do not reach out to your side (do not rotate your hand laterally NO EXTERNAL ROTATION) PAIN CONTROL: Use frequent ice to reduce amount of pain medications. Use for 30 minutes per hour. Do not leave in place longer than 30 minutes, especially when your block is in effect, to prevent frostbite or thermal injury. MEDICATIONS: 1. Oxycodone (OxyIR) 1-2 tablet(s) orally every 4-6 hours for pain as needed. Use with Tylenol. Begin tapering OxyIR as soon as possible: reduce from 2 to 1 p ills per dose, then spread out the doses over greater time intervals, then try to use only for therapy or for comfort while sleeping. Continue to use regular Tylenol until pain subsides. 2. Tylenol (325mg): 3 tablets every 8 hours orally. Regular dosing of Tylenol is an important part of your baseline pain control. Do not taper Tylenol until you have successfully tapered off of regular OxyIR. Do not take more than 3000mg of Tylenol per day. 3. Zofran 1 tablet orally every 6 hours as needed for nausea related to anesthesia, pain, and narcotic medications OVER THE COUNTER: Narcotics will cause constipation. Colace and or Miralax can help while you are taking oxycodone or other narcotics. 4. Colace (100mg): take 1-2 tabs twice daily to avoid constipation from OxyIR or other narcotics. 5. Miralax 1 tablespoon in a glass of water 2 times daily until normal bowel movements FOLLOWUP: 1. Ortho Clinic with Dr. Kelley: You should be seen in 10-14 days. Please call immediately to schedule if you do not have an appointment. 2. PHYSICAL THERAPY: It is OK to be seen by your therapist before the orthopedic postop appointment, if a specific consult has been placed. Pending Studies at Discharge: No Stand-Alone Forms: My [facility] Medications and DC Order Prescriptions: New oxycodone 5 mg tablet 5 mg PO Q4H PRN (Reason: pain) Qty: 18 0RF ondansetron HCl 4 mg tablet 4 mg PO Q8H PRN (Reason: nausea and vomiting) Qty: 10 0RF Continued gabapentin [Neurontin] 300 mg capsule 300 mg PO TID ipratropium-albuterol 0.5 mg-3 mg(2.5 mg base)/3 mL solution for nebulization 3 ml inhalation QID PRN (Reason: Shortness Of Breath) cholecalciferol (vitamin D3) 125 mcg (5,000 unit) capsule 5,000 unit PO QPM B Complex Plus Vitamin C [id number] mg capsule 1 cap PO DAILY Rx Instructions: give with food (meal/snack) levothyroxine [Euthyrox] 50 mcg tablet 50 mcg PO QAM atorvastatin [Lipitor] 40 mg tablet 40 mg PO HS sertraline [Zoloft] 100 mg tablet 200 mg PO HS montelukast [Singulair] 10 mg tablet 10 mg PO QAM mupirocin [Centany] 2 % ointment 1 applic TOPICAL DAILY PRN (Reason: NASAL DRYNESS) furosemide [Lasix] 20 mg tablet 40 mg PO QAM albuterol sulfate [Ventolin HFA] 90 mcg/actuation HFA aerosol inhaler 2 puff INHALATION DIRECTED PRN (Reason: Shortness Of Breath, Wheezing) fluticasone propionate [Flonase Allergy Relief] 50 mcg/actuation spray,suspension 2 spray INTRANASAL BID esomeprazole magnesium [Nexium 24HR] 20 mg capsule,delayed release(DR/EC) 20 mg PO HS levocetirizine [Xyzal] 5 mg tablet 5 mg PO BID Rx Instructions: alternating with claritin-d trazodone 150 mg Tablet 150 mg PO HS buspirone 15 mg Tablet 15 mg PO TID bupropion HCl [Wellbutrin XL] 300 mg Tablet Extended Release 24 Hr 300 mg PO QAM Mounjaro 15 mg/0.5 mL Pen Injector 15 mg SUBCUT Q7D Patient Comments: sundays Rx Instructions: Fridays trazodone 50 mg Tablet 50 mg PO HS Claritin-D 12 Hour 5-120 mg Tablet Extended Release 12 Hr 1 tab PO BID Rx Instructions: alternating with xyzal naproxen 500 mg Tablet 500 mg PO BID omega 2-fpb-hwa-fish oil [Fish Oil] 1,200 (144-216) mg Capsule 1 cap PO TID Trelegy Ellipta 100-62.5-25 mcg Blister With Device 1 inh INHALATION DAILY turmeric 400 mg Capsule 400 mg PO TID Synjardy 5-500 mg Tablet 1 tab PO BID Discharge Orders: Discharge Order (Routine); Ordered 09/23/24 Ordered By: Charli Harvey Admission Data Admit Date/Time: 09/22/24 16:35 Attending Provider: Omar Kelley Admit Provider: Charli Dwyer Primary Care Provider: Willi Kaufman Other Interventions: Discharge Summary Assessment (RN) Last Done: 09/23/24 16:46
== END 2024-09-23 17:59 | disposition home or self-care (01) ==
LOC: PACUINP 07:17 → ASU 07:17 → 3N 18:39
DX: Z79.890 Hormone replacement therapy; E11.9 Type 2 diabetes mellitus without complications; G47.33 Obstructive sleep apnea (adult) (pediatric); M67.911 Unspecified disorder of synovium and tendon, right shoulder; Z86.711 Personal history of pulmonary embolism; R09.02 Hypoxemia; Z86.16 Personal history of COVID-19; J45.909 Unspecified asthma, uncomplicated; Z79.899 Other long term (current) drug therapy; S46.011A Strain of muscle(s) and tendon(s) of the rotator cuff of right shoulder, initial encounter; Z79.85 Long-term (current) use of injectable non-insulin antidiabetic drugs; S46.211A Strain of muscle, fascia and tendon of other parts of biceps, right arm, initial encounter; K21.9 Gastro-esophageal reflux disease without esophagitis; X58.XXXA Exposure to other specified factors, initial encounter; Z79.51 Long term (current) use of inhaled steroids